=== PATIENT | female | born 2000 | race Caucasian/White ===

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

== ENCOUNTER 2022-03-13 23:53 | Emergency (ER) | payer OTHER ==
[~2022-03-13] VITALS: Ht 152.4 cm; Wt 58.1 kg
[2022-03-14 00:03] VITALS: BP 141/75
--- NOTE | 2022-03-14 00:07 | NUR ---
PATIENT TO THE BATHROOM FOR URINE COLLECTION
--- NOTE | 2022-03-14 00:09 | NUR ---
PATIENT TO LOBBY
[2022-03-14] MEDS ORDERED: ONDANSETRON 4 MG ODT PO ONE (03:10)
[2022-03-14] MEDS ORDERED: KETOROLAC 60 MG/2 ML VIAL IM ONE (03:10)
[2022-03-14] MEDS ORDERED: ACET-8386 PO (03:52)
[2022-03-14] MEDS ORDERED: ONDA8TAB87 PO (03:52)
[2022-03-14] MEDS ORDERED: IBUP-2213 PO (03:52)
[2022-03-14 04:44] VITALS: BP 109/56
== END 2022-03-14 04:44 | disposition home or self-care (01) ==
LOC: MED 23:53
DX: R10.30 Lower abdominal pain, unspecified (principal); R11.0 Nausea; J45.909 Unspecified asthma, uncomplicated; Z79.1 Long term (current) use of non-steroidal anti-inflammatories (NSAID); Z79.899 Other long term (current) drug therapy
CPT/HCPCS: 81002; 81025; 96372; 99283; J1885; Q0162

== ENCOUNTER 2022-05-17 18:33 | Emergency (ER) | payer OTHER ==
[~2022-05-17] VITALS: Ht 152.4 cm; Wt 57.2 kg
[~2022-05-17 18:33] MED LIST changes: +ACET-8386 PO; +IBUP-2213 PO; +ONDA8TAB87 PO
[2022-05-17 18:39] VITALS: BP 143/82
[2022-05-17] MEDS ORDERED: NACL 0.9% 1,000 ML IV ONE (18:40)
[2022-05-17] MEDS ORDERED: ONDANSETRON 4 MG/2 ML VIAL IVP ONE (18:40)
--- NOTE | 2022-05-17 18:46 | NUR ---
PT AMBULATED TO BED 08.
[2022-05-17] MEDS: MORPHINE SULFATE 4 MG/ML SYR IVP ONE (19:20)
[2022-05-17 19:21] LABS: BASOPHILS % (AUTO) 0.5 % (0.0-2.0); EOSINOPHILS % (AUTO) 0.5 % (0.0-4.0); HEMATOCRIT 38.5 % (36-48); HEMOGLOBIN 12.8 g/dL (12.0-16.0); LYMPHOCYTES # (AUTO) 2.5 K/uL (2.5-16.5); LYMPHOCYTES % (AUTO) 31.3 % (20.5-51.1); MEAN CORPUSCULAR HEMOGLOBIN 29 pg (27-31); MEAN CORPUSCULAR HGB CONC 33 g/dL (33-37); MEAN CORPUSCULAR VOLUME 87.4 fL (80-94); MONOCYTES # (AUTO) 0.4 K/uL (0.8-1.0); MONOCYTES % (AUTO) 5.3 % (1.7-9.3); NEUTROPHILS # (AUTO) 4.9 K/uL (1.8-7.7); NEUTROPHILS % (AUTO) 62.4 % (42.2-75.2); PLATELET COUNT (AUTO) 316 K/uL (140-450); RED CELL DISTRIBUTION WIDTH 14.7 % (11.6-13.7); WHITE BLOOD COUNT (AUTO) 7.9 K/uL (4.5-11.0)
[2022-05-17 19:46] LABS: ALBUMIN 4.7 g/dL (3.4-5.0); ANION GAP 13.7 (8-16); ASPARTATE AMINOTRANSFERASE 33 U/L (15-37); CARBON DIOXIDE 23.7 mmol/L (21-32); CHLORIDE 104 mmol/L (98-107); CREATININE 0.9 mg/dL (0.6-1.3); GFR ARICAN-AMERICAN 103 mL/min (>90); GLUCOSE 93 mg/dL (74-106); POTASSIUM 3.4 mmol/L (3.5-5.1); SODIUM SERUM 138 mmol/L (136-145); TOTAL BILIRUBIN 0.4 mg/dL (0.0-1.0); UREA NITROGEN, BLOOD 9 mg/dL (7-18)
[2022-05-17 19:51] LABS: ACETAMINOPHEN < 0.5 ug/ml (10-30); SALICYLATE < 2.8 mg/dL (2.8-20.0)
[2022-05-17] MEDS ORDERED: ONDANSETRON 4 MG/2 ML VIAL ONE (20:34)
[2022-05-17] MEDS ORDERED: MORPHINE SULFATE 4 MG/ML SYR ONE (20:35)
--- NOTE | 2022-05-17 21:03 | NUR ---
pt was given zofran and fluids. fluids flowing at a good rate. zofran iv push given by karey
[2022-05-17] MEDS ORDERED: IBUP-2213 PO (21:10)
--- NOTE | 2022-05-17 21:30 | NUR ---
22 y/o pt bib mother for nausea/ and lower abd pain x2 days. pt states menstual bleeding. pt states pain feels like intense period cramps. SKIN IS PINK/WARM/DRY; AAOX4 WITH EVEN AND STEADY GAIT; LUNGS CLEAR BL; HR EVEN AND REGULAR; PT DENIES ANY FEVER, CP, SOB, OR COUGH AT THIS TIME; PATIENT STATES PAIN OF 10/10 AT THIS TIME; VSS; pmh:none allergy: none
--- NOTE | 2022-05-17 21:49 | NUR ---
Patient discharged with v/s stable. Written and verbal after care instructions given and explained. Patient alert, oriented and verbalized understanding of instructions. Ambulatory with steady gait. All questions addressed prior to discharge. ID band removed. Patient advised to follow up with PMD. Rx of ibuprofen given. Opportunity to ask questions provided and answered.
--- NOTE | 2022-05-17 21:50 | NUR ---
Chart checked and completed.
[2022-05-17 22:00] VITALS: BP 141/56
== END 2022-05-17 21:49 | disposition home or self-care (01) ==
LOC: MED 18:33
DX: N93.9 Abnormal uterine and vaginal bleeding, unspecified (principal); J45.909 Unspecified asthma, uncomplicated; Z79.899 Other long term (current) drug therapy
CPT/HCPCS: 36415; 76801; 80053; 84484; 84702; 85025; 96374; 99285; G0480; G0482; J2270; J2405; Q0092; J7030

== ENCOUNTER 2023-11-09 09:21 | Emergency (ER) | payer OTHER ==
[~2023-11-09] VITALS: Ht 152.4 cm; Wt 67.1 kg
[~2023-11-09 09:21] MED LIST changes: -ACET-8386 PO; +ACET-8905 PO
[2023-11-09 09:40] VITALS: BP 138/88; PULSE 78; RESP 20; TEMP 98; O2SAT 100
[2023-11-09] MEDS ORDERED: IBUP-1842 PO (10:53)
[2023-11-09] MEDS ORDERED: ALBU0.0912 INH (10:53)
[2023-11-09 11:02] LABS: FLU A ANTIGEN negative (NEGATIVE); FLU B ANTIGEN negative (NEGATIVE)
== END 2023-11-09 11:03 | disposition home or self-care (01) ==
LOC: MED 09:21
DX: J06.9 Acute upper respiratory infection, unspecified (principal); Z20.822 Contact with and (suspected) exposure to COVID-19; J45.909 Unspecified asthma, uncomplicated; Z79.899 Other long term (current) drug therapy
CPT/HCPCS: 99283